=== PATIENT | male | born 1950 | race Caucasian/White ===

== ENCOUNTER 2017-12-21 05:13 | Emergency (ER) | payer MEDICARE ==
--- NOTE | 2017-12-21 05:38 | ED Physician Documentation ---
General Adult - HISTORIAN Historian: paramedics, other (Hernando - son) - HPI Chief Complaint: General Adult Further Comments: yes (67 year old male patient in route by EMS in full arrest. Patient found down in home by buildling manager local with shallow respirations. I/ O, airway and 2 rounds of Epi given in route. Patient with history of cancer. Call to Hernando Ramos - son; updated on patient's condition. Per Son patient is a DNR - no intubation, no CPR, only wants pain medication.) - ROS CONST: no problems (cancer patient) - PAST HX Past History: other (lung cancer - stopped chemo 4 month ago; on pallative care) Other History: none - SOCIAL HX Smoking History: cigarettes - FAMILY HX Family History: No - REVIEWED ASSESSMENTS Nursing Assessment Reviewed: Yes Vitals Reviewed: Yes Progress - Progress Progress: On arrival auto pulse in place; bagging with 100% BVM; compressions stop - asystole in all leads; no spontaneous respirations, no heart tones, pupils fixed and dilated. Time of 0515 General Adult Physical Exam - PHYSICAL EXAM GENERAL APPEARANCE: full arrest EENT: dry mucous membranes, other (pupils fixed and dilated) RESPIRATORY: other (no spontaneous respirations) CVS: other (asystole) ABDOMEN: other (emaciated) SKIN: mottled, pallor EXTREMITIES: no evidence of injury, no edema NEURO: other (unresponsive) Discharge Clincal Impression: Cardiac arrest Disposition: 20 Decision to Admit: NO Decision Time: 05:15
== END 2017-12-21 14:45 | disposition expired ==
LOC: ED 05:13
DX: I46.9 Cardiac arrest, cause unspecified (principal)
CPT/HCPCS: 99283